=== PATIENT | male | born 1970 | race Caucasian/White ===

== ENCOUNTER 2017-04-06 15:38 | Emergency (ER) | payer OTHER ==
[~2017-04-06] VITALS: Ht 172.7 cm; Wt 120.0 kg
[2017-04-06 15:50] VITALS: TEMP 36.6; Ht 172.7 cm; Wt 120.0 kg
--- NOTE | 2017-04-06 18:03 | DIAGNOSTIC IMAGING REPORT ---
RIGHT LOWER EXTREMITY VENOUS DOPPLER CLINICAL HISTORY: Right lower extremity pain after injury. COMPARISON STUDY: No previous studies for comparison. TECHNIQUE: Sonography of the deep venous system of the right lower extremity was performed. Compression and augmentation were evaluated. FINDINGS: The right common femoral, superficial femoral and popliteal veins were compressible. Augmentation was normal. Flow was shown within the deep calf vessels. There is a possible small fluid collection overlying the fascia of the right calf. IMPRESSION: 1. No evidence of deep venous thrombus within the right lower extremity. 2. Possible small elongated fluid collection overlying the fascia of the right calf which could reflect a small hematoma seen in the setting of a muscular injury. Electronically signed by: Tiago Chavez M.D. 04/06/2017 6:02 PM Dictated Date/Time: 04/06/2017 6:00 PM
[2017-04-06 18:19] VITALS: BP 128/87; PULSE 61; O2SAT 98
--- NOTE | 2017-04-07 00:12 | EMERGENCY ROOM VISIT NOTE ---
History First contact with patient: 15:54 Chief Complaint: CALF PAIN Stated Complaint: PULLED OR TORE CALF MUSCLE- History of Present Illness The patient is a 46 year old male who presents to the Emergency Room with complaints of pain and swelling of his right lower extremity. The patient states that his symptoms began a week ago while at work. 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 The patient had slowly worsening pain and initially went to [facility]. The patient states that he had x-ray and ultrasound that were both negative. He has been trying to follow-up with a Workmen's Compensation provider, and was directed to an urgent care clinic in [place]. The patient went to the urgent care clinic, who refused to see him , and told the patient that he needed an MRI. The patient now presents to this department with worsening swelling and bruising. He does not have fever or chills. No difficulty breathing. He has not had similar injury in the past. He rates his current discomfort a 5/10. Review of Systems More than 10 systems were reviewed and otherwise negative with the exception of history of present illness. Past Medical/Surgical History No chronic medical disease Family History No pertinent family history Social History Smoking Status: Current Some Day Smoker Housing Status: lives with family Occupation Status: employed Current/Historical Medications No Active Prescriptions or Reported Meds Allergies Coded Allergies: No Known Allergies (Verified , 04/06/17) Physical Exam Vital Signs Date Time Temp Pulse Resp B/P (MAP) Pulse Ox O2 Delivery O2 Flow Rate FiO2 04/06/17 18:19 61 18 128/87 98 Room Air 04/06/17 15:50 36.6 70 18 151/90 96 Room Air Pain Rating (0-10): 5.0 Physical Exam VITALS: Vitals are noted on the nurse's note and reviewed by myself. Vital signs stable. GENERAL: Well-developed, well-nourished, white male, who is in no acute distress and resting comfortably. Patient is cooperative with the examination. HEART: Regular rate and rhythm without murmurs gallops or rubs. LUNGS: Clear to auscultation bilaterally without wheezes, rales or rhonchi. No retractions or accessory muscle use. MUSCULOSKELETAL: Edema and ecchymosis appreciated over the right lower leg. The patient does have tenderness along the medial gastrocnemius into the Achilles insertion. The patient is able to dorsi and plantarflex against resistance. He does not have obvious palpable cord. NEURO: Patient was alert and oriented to person place and time. CN II through XII grossly intact. Medical Decision & Procedures ER Provider Diagnostic Interpretation: RIGHT LOWER EXTREMITY VENOUS DOPPLER CLINICAL HISTORY: Right lower extremity pain after injury. COMPARISON STUDY: No previous studies for comparison. TECHNIQUE: Sonography of the deep venous system of the right lower extremity was performed. Compression and augmentation were evaluated. FINDINGS: The right common femoral, superficial femoral and popliteal veins were compressible. Augmentation was normal. Flow was shown within the deep calf vessels. There is a possible small fluid collection overlying the fascia of the right calf. IMPRESSION: 1. No evidence of deep venous thrombus within the right lower extremity. 2. Possible small elongated fluid collection overlying the fascia of the right calf which could reflect a small hematoma seen in the setting of a muscular injury. ED Course Physical exam and history were performed. Nursing notes and EMR were reviewed. Patient appears to have suffered injury to his right lower extremity a week ago. The patient has slowly developed worsening pain. He initially had x-rays and ultrasound that were negative, however on exam he does have distinct pain in the posterior calf as well as noted swelling. Because of this I did elect to perform an ultrasound. Ultrasound was performed and does show a hematoma without DVT. Clinically this does correlate with his symptoms. The patient and I did have a lengthy discussion regarding options of care. The patient certainly needs to follow with a Workmen's Compensation orthopedist. Clinically he may have a tear to the medial gastroc as the likely cause of his symptoms. He needs to acquire provider information from his employer to find appropriate follow-up. The patient may use [id number] analgesics for pain control. He does have a walking boot that he is to continue using. The patient was pleased with this and voiced understanding. He was otherwise invited back to the ER with any new , worsening, or concerning symptoms. The chart was completed utilizing [employer] Voice Recognition Software. Grammatical errors, random word insertions, pronoun errors, and incomplete sentences are an occasional consequence of this system due to software limitations, ambient noise, and hardware issues. Any formal questions or concerns about the content, text, or information contained within the body of this dictation should be directly addressed to the provider for clarification. . Medical Decision Differential diagnosis: Etiologies such as DVT, musculoskeletal, infection, joint effusion, trauma, lymphedema, idiopathic, CHF, as well as others were entertained.. Impression Primary Impression: Right calf pain Departure Information Dispostion Home / Self-Care Condition GOOD Prescriptions No Active Prescriptions or Reported Meds Referrals Vasu Nolan, DO Forms HOME CARE DOCUMENTATION FORM, IMPORTANT VISIT INFORMATION Patient Instructions My [facility] Additional Instructions You were seen and evaluated today on an emergency basis only. This is not a substitute for, or an effort to provide, complete comprehensive medical care. It is not possible to recognize and treat all injuries or illnesses in a single emergency department visit. For this reason it is recommended that you followup with a Workmen's Compensation orthopedic physician for ongoing care and evaluation as soon as possible. Your employer or Workmen's Compensation liaison should be able to provide you a list of acceptable provider's. For baseline pain relief you may alternate ibuprofen and acetaminophen every 4 hours for pain control. Take 600 mg ibuprofen (Advil) and then 4 hours later take 1000 mg acetaminophen (Tylenol). Do not take more than 3000 mg acetaminophen in a single day. Continue to use your walking boot You are welcome to return to the emergency department anytime with new, worsening, or concerning symptoms.
== END 2017-04-06 18:38 | disposition home or self-care (01) ==
LOC: C.EDB 15:40 → C.EDD 18:38
DX: M79.661 Pain in right lower leg (principal); X50.1XXA Overexertion from prolonged static or awkward postures, initial encounter; Y99.0 Civilian activity done for income or pay; F17.210 Nicotine dependence, cigarettes, uncomplicated